=== PATIENT | male | born 1985 | race Caucasian/White ===

== ENCOUNTER 2024-02-22 10:12 | Emergency (ER) | payer OTHER, SELFPAY ==
[2024-02-22 10:16] VITALS: BP 173/106
[2024-02-22 11:33] VITALS: BP 145/79
--- NOTE | 2024-02-22 11:35 | ED.GENMED ---
History of Present Illness
<Katty Chun PA-C - Last Filed: 02/22/24 17:04>
General
Chief Complaint: Withdrawal Symptoms
Source: patient
Exam Limitations: none
Time Seen by Provider: 02/22/24 11:14
Nursing documentation reviewed up to this point in time: agreed with
Travel History
Have you had any contact with someone who has COVID-19?: No
Do you have any symptoms of coronavirus? Fever > 100 degrees, chills, cough, shortness of breath, sore throat, loss of taste or smell, muscle aches, or headache?: No
History of Present Illness
History of Present Illness:
Patient is a 38 year old male wiht history paroxysmal afib non complaint with eliquis, hypertension presenting to the emergency department for evaluation of withdrawal symptoms. 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
years now. He last used all 3 of these substances yesterday around 10AM. Patient denies any alcohol drinking. Patient currently endorses chills, muscle aches, significant nausea, and weakness. Patient states that he is unable to walk due to
weakness. Patient denies any fever, chills, chest pain, shortness of breath, headache. Patient would like assistance with placement at [place]. He states that he was there for detox many years ago. Patient denies any history of IV drug use.
Patient does have a history of seizures with withdrawal. He takes Topamax but he is unsure what dose he takes.
Patient states that over the past 4 days he has been noncompliant with his medications, including Eliquis and Topamax
Review of Systems
<Katty Chun PA-C - Last Filed: 02/22/24 17:04>
Review of Systems
Allergies reviewed?: Yes
All Other Systems: ROS reviewed and negative except as documented in HPI and ROS
Phy Exam
<Katty Chun PA-C - Last Filed: 02/22/24 17:04>
Physical Exam
Physical Exam:
Vitals: Patient's vital signs are stable. Afebrile
General: Patient is agitated.
Skin: Warm and dry, no rashes or lesions
Head: Normocephalic, atraumatic
Eyes: Sclera bilateral diffuse injection. Pupils equal round and reactive to light bilaterally. EOMs intact. No nystagmus.
Throat: Protecting airway
Neck: Normal ROM, no cervical spine tenderness, no meningismus
Cardiac: Regular rate and rhythm, no murmurs.
Pulm: Normal respiratory effort, no wheezes, rales, rhonchi heard on exam.
Abdomen: Abdomen soft. No abdominal tenderness.
Extremities: No evidence of cyanosis or edema. Mild tremor of hands.
Neuro: AAOx3. CN II-XII intact. No focal neurologic deficits. Speech normal.
Psychiatric: Agitated and restless appearing.
Scores
<Katty Chun PA-C - Last Filed: 02/22/24 17:04>
COW Clinical Opiate Withdrawal Scale
Resting Pulse Rate: 80 or below
Sweating-over past 30min not from room temp or activity: Reports chills or flushing
Restlessness-observation during assessment: Reports difficulty sittin
Pupil Size: Pupils possibly larger than normal for room light
Bone or Joint Aches: Mild diffuse discomfort
Runny Nose or Tearing-not accounted for by cold/allergies: Not present
GI Upset-over last 30min: Nausea or loose stool
Tremor-observation of outstretched hands: Tremor can be felt, but not observed
Yawning-observation during assessment: Yawning once or twice during assessment
Anxiety or Irritability: Patient reports increasing irritability or anxiousness
Gooseflesh Skin: Skin is smooth
Score: 9
Withdrawal Severity: Mild Withdrawal, consider starting Suboxone
<Aristides Ramirez DO - Last Filed: 02/22/24 13:25>
COW Clinical Opiate Withdrawal Scale
Score: 10
Withdrawal Severity: Mild Withdrawal, consider starting Suboxone
Course
<Katty Chun PA-C - Last Filed: 02/22/24 17:04>
Orders/Labs/Results
Orders:
Orders
02/22/24 11:51
Electrocardiogram (*1) Urgent
Reason for Study: Palpitations
EKG- Treatment ONCE
02/22/24 11:58
0.9% Sodium Chloride 1000 ml [Nss] 1,000 ml IV BOLUS
Ondansetron Injectable [Zofran] 4 mg IV NOW STA
02/22/24 12:00
Ketorolac [Toradol] 15 mg IV NOW STA
02/22/24 12:07
Complete Blood Count/With Diff Urgent
Comprehensive Metabolic Panel Urgent
02/22/24 13:43
Lorazepam [Ativan] 1 mg PO NOW STA
Ondansetron Injectable [Zofran] 4 mg IV NOW STA
02/22/24 13:54
Ondansetron HCl [Zofran] 4 mg PO NOW STA
Abnormal Lab Results
02/22/24
12:07
RBC 4.63 L 10^6/uL
(4.70-6.10)
RDW 14.6 H %
(11.5-14.5)
MPV 10.6 H fL
(7.4-10.4)
Absolute Lymphs (auto) 0.8 L 10^3/uL
(1.2-3.4)
Absolute Monos (auto) 0.8 H 10^3/uL
(0.1-0.6)
Lymphocytes % 13.1 L %
(20.5-51.1)
Monocytes % 12.4 H %
(1.7-9.3)
BUN 8 L mg/dl
(9-20)
Creatinine 0.6 L mg/dL
(0.7-1.3)
02/22/24 12:07
02/22/24 12:07
Vital Signs
Initial and Last Documented VS:
Initial Vital Signs
Temp BP
99.5 F 173/106
02/22/24 10:16 02/22/24 10:16
Last Documented Vital Signs
Temp Pulse Resp BP Pulse Ox
99.1 F 79 16 145/79 99
02/22/24 11:33 02/22/24 11:33 02/22/24 11:33 02/22/24 11:33 02/22/24 11:33
<Aristides Ramirez, DO - Last Filed: 02/22/24 13:25>
Orders/Labs/Results
Orders:
Orders
02/22/24 11:51
Electrocardiogram (*1) Urgent
Reason for Study: Palpitations
EKG- Treatment ONCE
02/22/24 11:58
0.9% Sodium Chloride 1000 ml [Nss] 1,000 ml IV BOLUS
Ondansetron Injectable [Zofran] 4 mg IV NOW STA
02/22/24 12:00
Ketorolac [Toradol] 15 mg IV NOW STA
02/22/24 12:07
Complete Blood Count/With Diff Urgent
Comprehensive Metabolic Panel Urgent
02/22/24 13:43
Lorazepam [Ativan] 1 mg PO NOW STA
Ondansetron Injectable [Zofran] 4 mg IV NOW STA
02/22/24 13:54
Ondansetron HCl [Zofran] 4 mg PO NOW STA
Abnormal Lab Results
02/22/24
12:07
RBC 4.63 L 10^6/uL
(4.70-6.10)
RDW 14.6 H %
(11.5-14.5)
MPV 10.6 H fL
(7.4-10.4)
Absolute Lymphs (auto) 0.8 L 10^3/uL
(1.2-3.4)
Absolute Monos (auto) 0.8 H 10^3/uL
(0.1-0.6)
Lymphocytes % 13.1 L %
(20.5-51.1)
Monocytes % 12.4 H %
(1.7-9.3)
BUN 8 L mg/dl
(9-20)
Creatinine 0.6 L mg/dL
(0.7-1.3)
02/22/24 12:07
02/22/24 12:07
Vital Signs
Initial and Last Documented VS:
Initial Vital Signs
Temp BP
99.5 F 173/106
02/22/24 10:16 02/22/24 10:16
Last Documented Vital Signs
Temp Pulse Resp BP Pulse Ox
99.1 F 79 16 145/79 99
02/22/24 11:33 02/22/24 11:33 02/22/24 11:33 02/22/24 11:33 02/22/24 11:33
<Katty Chun PA-C - Last Filed: 02/22/24 17:04>
MDM/Problems Addressed
Differential Diagnosis Includes:
Not limited to: Opioid withdrawal, benzodiazepine withdrawal, cocaine withdrawal
MDM/Problems Addressed:
38 year old male presenting in acute withdrawal. Patient has long standing history of opioid, benzodiazepine, and cocaine use. Last used yesterday morning around 11AM. Patient requesting placement in rehab facility. He has no history of IV drug
use. Patient complaining of significant nausea, diffuse weakness and joint pain, and sweating. Patient has stable vital signs. He is afebrile exam as above. He does appear restless and in mild distress.. Heart rate regular with regular rhythm.
Lungs clear bilaterally. Patient appears to be in mild withdrawal with the COWS score of 9. Will check basic labs, EKG. Will give IV fluids, Toradol, Zofran. Will reach out to [facility] for consultation and assistance with placement. Will monitor
closely and reassess.
Labs noted. No clinically significant abnormalities. EKG shows normal sinus rhythm without any ischemic changes. Patient still appears to be in mild distress. We were able to arrange placement for patient at [facility] rehab facility. Will give
dose of Zofran and 1 Mg Ativan prior to discharge. Patient will be transferred directly to [facility] for rehabilitation. Return precautions discussed with patient. Patient is medically stable for discharge to rehab.
Chronic conditions affecting care:
Subustance abuse
Acute Exacerbation and/or Progression of Chronic Illness:
Acute withdrawal syndrome
<Katty Chun PA-C - Last Filed: 02/22/24 17:04>
*Pulse Oximetry
Patient hypoxic: no
*EKG
Interpreted by ED Provider?: Yes
EKG Intrepretation Date: 02/22/24
Interpretation: normal
Comparison EKG: no comparison EKG present
Heart Rate: 84
Rate: normal
Rhythm: sinus
[place]: normal axis
QRS Pattern: normal QRS
Ischemia: no ischemia
*Java Lead Architect Interpretation
Rate: Java Lead Architect- N/A
*Critical Care Note
Total Time (30-74mins, 75-104mins- exclusive of procedures): Not Applicable
ED Attending Note
<Katty Chun PA-C - Last Filed: 02/22/24 17:04>
-
Portions of this chart may have been created with voice recognition software.� Occasional wrong word or��sound alike� substitutions may have occurred due to the inherent limitations of voice recognition software.
<Aristides Ramirez DO - Last Filed: 02/22/24 13:25>
ED Attending Note
Patient seen and examined by attending physician: Yes
I performed the substantive portion of visit, reviewed & personally made and approve the management plan that is documented in note by myself or JANETTE.: Yes
Discharge Plan
Departure
Patient Disposition: Acute Rehab Facility
Date of Disposition: 02/22/24
Time of Disposition: 13:46
Patient with high blood pressure during this ER visit?: Yes
Condition: Good
Covid-19: Not Applicable
Discharge Problem:
Acute drug withdrawal syndrome
Instructions: Nausea and Vomiting, Adult (DC), Drug Misuse and Addiction (DC)
Referrals:
Lester Fairchild MD [Family Provider] -
Activity Restrictions/Additional Instructions:
RETURN TO THE EMERGENCY DEPARTMENT WITH ANY HIGH FEVERS, CHEST PAIN, SHORTNESS OF BREATH, SEIZURES, OR ANY OTHER CONCERNS
Interventions
Interventions:
*Risk Screen - Suicide Last Done: 02/22/24 11:14
*General Assessment Last Done: 02/22/24 11:14
*Neglect/Abuse Screening Last Done: 02/22/24 11:14
ED- Fall Risk Assessment Last Done: 02/22/24 11:14
*ED COVID-19 Vaccine History Last Done: 02/22/24 11:14
*Nursing Disposition Last Done: 02/22/24 14:03
ED- Neurological Assessment Last Done: 02/22/24 11:14
ED-Psychological Assessment Last Done: 02/22/24 11:14
Discharge Date and Time
Discharge Date/Time: 02/22/24 14:05
Print Language: IRISH
[2024-02-22] MEDS: NSS 1000 IV (12:00)
[2024-02-22] MEDS: ZOFRAN 4 MG IV (12:00)
[2024-02-22 12:26] LABS: % Basophils 0.5 % (0-2); % Eosinophils 0.7 % (0-6); % Immature Granulocytes 0.2 % (0-0.5); % Lymphocytes 13.1 % (20.5-51.1); % Monocytes 12.4 % (1.7-9.3); % Neutrophils 73.1 % (42.2-75.2); Absolute Lymphocytes 0.8 10^3/uL (1.2-3.4); Absolute Monocytes 0.8 10^3/uL (0.1-0.6); Absolute Neutrophils 4.5 10^3/uL (1.4-6.5); Hematocrit 40.4 % (39.0-52.0); Hemoglobin 13.7 g/dL (13.0-18.0); Mean Corp Hgb Conc. 33.9 g/dL (33.0-37.0); Mean Corpuscular Hgb 29.6 pg (27.0-31.0); Mean Corpuscular Volume 87.3 fL (80.0-94.0); Mean Platelet Volume 10.6 fL (7.4-10.4); Nucleated Red Blood Cells % 0 % (-); Platelet Count 255 10^3/uL (130-400); Red Blood Cell Count 4.63 10^6/uL (4.70-6.10); Red Cell Dist. Width 14.6 % (11.5-14.5); White Blood Cell Count 6.1 10^3/uL (4.8-10.8)
[2024-02-22] MEDS: TORADOL 15 MG IV (12:28)
[2024-02-22 12:34] LABS: ALT (SGPT) 21 U/L (0-50); AST (SGOT) 26 U/L (17-59); Alkaline Phosphatase 47 U/L (38-126); Blood Urea Nitrogen 8 mg/dl (9-20); Calcium 9.6 mg/dl (8.4-10.2); Carbon Dioxide 30 mmol/L (22-30); Chloride 103 mmol/L (98-107); Glucose 72 mg/dl (70-99); Potassium 3.9 mmol/L (3.5-5.1); Sodium 139 mmol/L (135-145); Total Bilirubin 0.5 mg/dl (0.2-1.3); Total Protein 6.3 g/dl (6.3-8.2); eGFR > 60.00
[2024-02-22] MEDS: ZOFRAN 4 MG PO (14:02)
[2024-02-22] MEDS: ATIVAN 1 MG PO (14:02)
== END 2024-02-22 14:05 ==
LOC: EMR 10:12
PROVIDERS: Physician Assistant; EMERGENCY PHYSICIAN Emergency Medicine; FAMILY PHYSICIAN Family Medicine
DX: F19.239 Other psychoactive substance dependence with withdrawal, unspecified (principal); R53.1 Weakness; I48.0 Paroxysmal atrial fibrillation; Z91.148 Patient's other noncompliance with medication regimen for other reason; R00.2 Palpitations
CPT/HCPCS: 99285; 96374; 96375; 96361; 80053; 85025; 93005